=== PATIENT | male | born 1975 | race Caucasian/White ===

== ENCOUNTER 2017-04-17 00:41 | Inpatient (IN) | payer BC, SELFPAY | END 2017-04-18 14:30 | disposition home or self-care (01) | DRG 641 | PROVIDERS: Admitting Provider Internal Medicine Adolescent Medicine; Emergency Provider Emergency Medicine; Family Provider Nurse Practitioner; Visit Provider Family Medicine | DX: E86.0 Dehydration (principal); K52.9 Noninfective gastroenteritis and colitis, unspecified; K75.9 Inflammatory liver disease, unspecified; D72.825 Bandemia | CPT/HCPCS: 36415; 71020; 80048; 80053; 80076; 82150; 82550; 82553; 83605; 83690; 84484; 85025; 86704; 86708; 86803; 87040; 87275; 87276; 87340; 87486; 87581; 87633; 87798; 93005; 96365; 96375; 99285; J2405 ==

== ENCOUNTER → 2017-04-21 | Outpatient (CLI) | payer BC, SELFPAY | PROVIDERS: Family Provider Family Medicine; Visit Provider Family Medicine | DX: R05 Cough (principal) | CPT/HCPCS: 71020 ==

== ENCOUNTER → 2017-04-22 | Outpatient (CLI) | payer BC, SELFPAY | PROVIDERS: Visit Provider Family Medicine | DX: A09 Infectious gastroenteritis and colitis, unspecified (principal) | CPT/HCPCS: 87507 ==

== ENCOUNTER 2017-08-02 10:30 | Outpatient (RCR) | payer BC, SELFPAY | END 2017-08-02 10:31 | disposition home or self-care (01) | LOC: PT 10:30 | PROVIDERS: Family Provider Family Medicine; PCP Nurse Practitioner | DX: M48.062 Spinal stenosis, lumbar region with neurogenic claudication (principal) | CPT/HCPCS: 97110 ==

== ENCOUNTER → 2017-12-26 13:00 | Outpatient (CLI) | payer BC, SELFPAY ==
--- NOTE | 2017-12-26 13:07 | NVE_ITS ---
Venous Exam Indications: 782.3 Edema. IMPRESSIONS 1. There is no evidence of significant Reflux. 2. No evidence of deep or superficial vein thrombosis involving the right lower extremity Right lower extremity venous duplex evaluation. Doppler flow study including spectral analysis, color and cunningham scale imaging. Location: Vascular laboratory. Patient status: Outpatient. Tables: Venous flow and imaging: + +-------+ + Location Overall Flow properties + +-------+ + Right common femoral Patent Normal phasicity; spontaneous; normal augmentation; compressible + +-------+ + Right saphenofemoral junction Patent Compressible + +-------+ + Right profunda femoral Patent Compressible + +-------+ + Right femoral Patent Normal phasicity; spontaneous; normal augmentation; compressible + +-------+ + Right greater saphenous Patent Normal phasicity; spontaneous; normal augmentation; compressible + +-------+ + Right popliteal Patent Normal phasicity; spontaneous; normal augmentation; compressible + +-------+ + Right posterior tibial Patent Compressible + +-------+ + Right peroneal Patent Compressible + +-------+ + Right gastrocnemius Patent Compressible + +-------+ + Right soleal Patent Compressible + +-------+ + (Report amended ) Electronically signed by: Jeff Paez [id number]
--- NOTE | 2017-12-26 13:08 | US_ITS ---
US Arterial Ankle Brachial Ind History: Previous smoker, right lower extremity edema ORDERING PHYSICIAN: Maryann Mccallum PATIENT AGE: 42 years TECHNIQUE: Segmental pressures obtained of both right and left leg. These are compared to brachial blood pressure to yield index at each level sampled including summary KENNY. The data sheets from the procedure are available in PACS FINDINGS Rest study only performed today No prior studies available for comparison. Blood pressures reported are in millimeters mercury. RIGHT LEG KENNY = 1.1. RIGHT LEG TBI=1.0 Brachial BP: 145 Thigh BP: 145 Calf BP: 155 Ankle PT: 161 Ankle DP : 152 Digit =139 LEFT LEG KENNY = 1.1 LEFT LEG TBI= 1.0 Brachial BPD: 136 Thigh BP: 147 Calf BP: 156 Ankle PT:156 Ankle DP: 157 Digit = 143 Pulses and waveforms: Normal IMPRESSION: The ABIs as reported above are within normal limits. Waveforms and pulses are also unremarkable.
== END ==
PROVIDERS: Family Provider Family Medicine; PCP Nurse Practitioner; Visit Provider Nurse Practitioner
DX: M79.89 Other specified soft tissue disorders (principal)
CPT/HCPCS: 93922; 93971

== ENCOUNTER → 2019-06-05 20:17 | Outpatient (CLI) | payer BC, SELFPAY | PROVIDERS: PCP Nurse Practitioner; Visit Provider Nurse Practitioner Family | DX: G47.33 Obstructive sleep apnea (adult) (pediatric) (principal); R40.0 Somnolence; R06.83 Snoring; E66.9 Obesity, unspecified; G25.81 Restless legs syndrome | CPT/HCPCS: 95810 ==

== ENCOUNTER → 2019-12-19 09:05 | Outpatient (CLI) | payer BC, SELFPAY ==
--- NOTE | 2019-12-19 09:07 | US_ITS ---
PROCEDURE: US THYROID CLINICAL INDICATION: ENLARGED THYROID,FATIGUE COMPARISON: No exams were available for comparison FINDINGS: Right lobe: 3.7 x 1.3 x 2.2 cm. There is a subtle 12 x 6 mm area of slight decreased echogenicity in the upper pole which could be due to a small isoechoic nodule versus an area of heterogeneous echogenicity. Left lobe: 3.7 x 0.9 x 1.6 cm. Unremarkable appearance Isthmus: Unremarkable Additional findings: IMPRESSION: Questionable right thyroid nodule versus an area of heterogeneous echogenicity. Consider six-month follow-up Dictated by: Jeff Paez MD 12/19/2019 14:07 Jeff Paez MD in [place] 12/19/2019 14:07
== END ==
PROVIDERS: PCP Nurse Practitioner; Visit Provider Nurse Practitioner
DX: E04.9 Nontoxic goiter, unspecified (principal); R53.83 Other fatigue
CPT/HCPCS: 76536

== ENCOUNTER → 2020-08-21 17:12 | Outpatient (CLI) | payer BC, SELFPAY ==
--- NOTE | 2020-08-21 17:19 | XR_ITS ---
PROCEDURE INFORMATION: Exam: XR Right Ribs with PA Chest Exam date and time: 08/21/2020 5:19 PM Age: 44 years old Clinical indication: Other: RT ant rib pain; Additional info: RT rib pain, no injury TECHNIQUE: Imaging protocol: XR Right ribs with PA chest. Views: 3 views COMPARISON: CR CXR CHEST(2 VIEWS-NOT PORTABLE) 04/21/2017 12:46 PM FINDINGS: Lungs: Unremarkable. No consolidation. Pleural spaces: Unremarkable. No pleural effusion. No pneumothorax. Heart/Mediastinum: Unremarkable. No cardiomegaly. Bones/joints: Unremarkable. IMPRESSION: No acute findings.
== END ==
PROVIDERS: PCP Nurse Practitioner Family; Visit Provider Nurse Practitioner Family
DX: R07.81 Pleurodynia (principal); S29.9XXA Unspecified injury of thorax, initial encounter
CPT/HCPCS: 71101

== ENCOUNTER 2022-02-20 13:03 | Emergency (ER) | payer BC, SELFPAY ==
[2022-02-20 13:55] VITALS: BP 142/103; PULSE 68; RESP 14; TEMP 36.4; O2SAT 97; BMI 44.7
--- NOTE | 2022-02-20 14:16 | EXP.UTC ---
Discharge Plan Disposition Patient Disposition: Home, Self-Care Condition: Good Prescriptions Prescriptions: New cefdinir 300 mg capsule 300 mg PO BID Qty: 20 0RF No Action Ubrelvy 100 mg tablet 100 mg PO PRN Label Comments: FOR MIGRAINE; TAKE 1 TABLET BY MOUTH AT ONSET OF SYMPTOMS. MAY REPEAT AFTER TWO HOURS IF SYMPTOMS PERSIST. MAX 2 TABLETS IN 24 HOURS. MAX 4 TABLETS PER WEEK. famotidine 20 mg tablet 20 mg PO DAILY ibuprofen 800 mg tablet 800 mg PO BID Ozempic 1 mg/dose (4 mg/3 mL) pen injector 1 mg SQ Referrals Follow up/Referrals: Lindsay Ashton APRN [Primary Care Provider] - See instructions Activity Restrictions/Add. Instructions Additional Instructions/Restrictions: Start antibiotic as soon as possible and be sure to take as ordered for full length of time even though he should start feeling better in 24-48 hours. Tylenol or Motrin as needed for pain or fever Encourage fluids, water, Gatorade, Powerade, Pedialyte if /toddler/child Warm compresses often helps when placed over ear Return immediately for new or worsening symptoms no noticeable improvement in 48-72 hours and in 10-14 days to ensure the ears are return to baseline. Follow-up with primary care Clinical Impressions Clinical Impression: Acute otitis media of right ear with perforated tympanic membrane Instructions Patient Instructions: Middle Ear Infection Discharge ED Provider: Jagruti ([facility])Therese [facility] [place] HPI General Stated complaint: ear pain, cough, chest congestion Mode of Arrival: Ambulatory Source of Information: Patient Limitations: No Limitations Time Seen by Provider: 02/20/22 14:16 Description of Symptoms (Recalled from Triage Doc. by RN): PATIENT C/O PAIN AND DRAINAGE FROM RIGHT EAR HEENT Symptoms (Recalled from RN notes): Yes Resp Symptoms (Recalled from RN notes): No Skin Symptoms (Recalled from RN notes): No MS Symptoms (Recalled from RN notes): No Functional Status (Recalled from RN notes): WNL History of Present Illness Provider Complaint: 46 yr old male presents for rt ear pain and drainage. Pt states he has clear nasal congestion for over 1 week and it makes it hard to wear c pap machine Related Data Home Medications Medication Instructions Recorded Confirmed famotidine 20 mg tablet 20 mg PO DAILY 08/25/21 08/25/21 ibuprofen 800 mg tablet 800 mg PO BID 08/25/21 08/25/21 semaglutide 1 mg/dose (4 mg/3 mL) 1 mg SQ 08/25/21 08/25/21 subcutaneous pen injector (Ozempic) ubrogepant 100 mg tablet (Ubrelvy) 100 mg PO PRN 08/25/21 08/25/21 Previous Rx's Medication Instructions Recorded cefdinir 300 mg capsule 300 mg PO BID #20 caps 02/20/22 Allergies Allergy/AdvReac Type Severity Reaction Status Date / Time ampicillin [From Omnipen] Allergy Verified 08/25/21 10:15 Worker's Comp Is this a Worker's Comp case?: No PFSH PFSH Social History , 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) Smoking Status: Former smoker alcohol intake: current substance use type: denies use current occupational status: other Travel in the last 8 weeks: None household members: family housing: house ROS Obtained: Yes All systems reviewed & no additional complaints except as documented Constitutional Constitutional: Reports system reviewed and no additional complaints, except as documented Eyes Eyes: Reports system reviewed and no additional complaints, except as documented ENT Ears, Nose, Mouth, and Throat: Reports system reviewed and no additional complaints, except as documented, Reports ear discharge and Reports otalgia Cardiovascular Cardiovascular: Reports system reviewed and no additional complaints, except as documented Respiratory Respiratory: Reports system reviewed and no additional complaints, except as documented and Reports as per HPI Gastrointestinal Gastrointestingal: Reports system reviewed and no additional complaints, except as documented a
[2022-02-20 14:31] VITALS: BP 142/103; PULSE 68; RESP 14; TEMP 36.4; O2SAT 97
== END 2022-02-20 14:41 | disposition home or self-care (01) ==
PROVIDERS: Emergency Provider Nurse Practitioner Family; PCP Nurse Practitioner Family
DX: H66.91 Otitis media, unspecified, right ear (principal); H72.91 Unspecified perforation of tympanic membrane, right ear
CPT/HCPCS: 99212; G0463

== ENCOUNTER 2022-03-21 19:04 | Emergency (ER) | payer BC, SELFPAY ==
--- NOTE | 2022-03-21 20:03 | EXP.UTC ---
Discharge Plan Disposition Patient Disposition: Home, Self-Care Condition: Good Prescriptions Prescriptions: New benzonatate [benzonatate] 100 mg capsule 100 mg PO TIDP PRN (Reason: Cough) Qty: 30 0RF oseltamivir [Tamiflu] 75 mg capsule 75 mg PO BID Qty: 10 0RF ondansetron 4 mg Tablet,Disintegrating 4 mg PO Q8H PRN (Reason: Nausea) Qty: 20 0RF No Action Ubrelvy 100 mg tablet 100 mg PO PRN Label Comments: FOR MIGRAINE; TAKE 1 TABLET BY MOUTH AT ONSET OF SYMPTOMS. MAY REPEAT AFTER TWO HOURS IF SYMPTOMS PERSIST. MAX 2 TABLETS IN 24 HOURS. MAX 4 TABLETS PER WEEK. famotidine 20 mg tablet 20 mg PO DAILY ibuprofen 800 mg tablet 800 mg PO BID Ozempic 1 mg/dose (4 mg/3 mL) pen injector 1 mg SQ cefdinir 300 mg capsule 300 mg PO BID Qty: 20 0RF Referrals Follow up/Referrals: Lindsay Ashton APRN [Primary Care Provider] - See instructions Activity Restrictions/Add. Instructions Additional Instructions/Restrictions: Drink plenty of fluids. Take tylenol or ibuprofen for pain or fever. Take the medications as directed. Follow up with your regular doctor. GO TO THE ER FOR ANY WORSENING SYMPTOMS Clinical Impressions Clinical Impression: Influenza Stand Alone Forms Stand Alone Forms: Work/School Release Instructions Patient Instructions: Influenza, Oseltamivir Discharge ED Provider: Manuelito Arreguin [facility] General Stated complaint: fever, weakness, cough Time Seen by Provider: 03/21/22 20:03 History of Present Illness Provider Complaint: He states that for the past 1 day he has had fever, chills, dry cough, malaise and poor appetite. Related Data Home Medications Medication Instructions Recorded Confirmed famotidine 20 mg tablet 20 mg PO DAILY 08/25/21 08/25/21 ibuprofen 800 mg tablet 800 mg PO BID 08/25/21 08/25/21 semaglutide 1 mg/dose (4 mg/3 mL) 1 mg SQ 08/25/21 08/25/21 subcutaneous pen injector (Ozempic) ubrogepant 100 mg tablet (Ubrelvy) 100 mg PO PRN 08/25/21 08/25/21 Previous Rx's Medication Instructions Recorded cefdinir 300 mg capsule 300 mg PO BID #20 caps 02/20/22 benzonatate 100 mg capsule 100 mg PO TIDP PRN Cough #30 caps 03/21/22 ondansetron 4 mg disintegrating 4 mg PO Q8H PRN Nausea #20 tabs 03/21/22 tablet oseltamivir 75 mg capsule (Tamiflu) 75 mg PO BID #10 caps 03/21/22 Allergies Allergy/AdvReac Type Severity Reaction Status Date / Time ampicillin [From Omnipen] Allergy Verified 03/21/22 20:20 PFSH PFS Social History Smoking Status: Former smoker alcohol intake: current substance use type: denies use current occupational status: other Travel in the last 8 weeks: None household members: family housing: house ROS Obtained: Yes All systems reviewed & no additional complaints except as documented Constitutional Constitutional: Reports chills and Reports fever(s) Eyes Eyes: Denies eye discharge ENT Ears, Nose, Mouth, and Throat: Reports as per HPI Cardiovascular Cardiovascular: Denies chest pain Respiratory Respiratory: Denies chest congestion and Reports cough Gastrointestinal Gastrointestingal: Reports nausea; Denies abdominal pain, constipation, cramping, diarrhea or vomiting Musculoskeletal Musculoskeletal: Denies arthralgias Integumentary/Breasts Skin/Breast: Denies rash Neurologic Neurologic: Denies paresthesias Physical Exam General General appearance: alert and in no apparent distress Head Head exam: atraumatic, normocephalic and normal inspection Eye Eye exam: Present normal appearance, PERRL and EOMI ENT ENT exam: Present normal exam, normal oropharynx, mucous membranes moist, TM's normal bilaterally and normal external ear exam Neck Neck exam: Present normal inspection, full ROM and trachea midline; Absent meningismus or lymphadenopathy Chest Chest inspection: Present normal inspection and symmetric chest wall
[2022-03-21 20:18] VITALS: BP 125/85; PULSE 68; RESP 18; TEMP 36.7; O2SAT 97; BMI 42.5
[2022-03-21 20:22] LABS: UTC Influenza A Antigen Negative (Negative); UTC Influenza B Antigen Negative (Negative)
[2022-03-21 20:28] VITALS: BP 125/85; PULSE 68; RESP 18; TEMP 36.7
[2022-03-21 20:34] LABS: Adenovirus,PCR Not Detected (NotDetected); Bordetella Pertussis Not Detected (NotDetected); Chlamydophila Pneumoniae, PCR Not Detected (NotDetected); Coronavirus 229E Not Detected (NotDetected); Coronavirus NL63 Not Detected (NotDetected); Coronavirus OC43 Not Detected (NotDetected); Coronovirus HKU1,PCR Not Detected (NotDetected); Human Metapneumovirus Not Detected (NotDetected); Influenza A, PCR Not Detected (NotDetected); Influenza AH1, 2009 Not Detected (NotDetected); Influenza AH1, PCR Not Detected (NotDetected); Influenza AH3,PCR Not Detected (NotDetected); Influenza B, PCR Not Detected (NotDetected); Mycoplasma Pneumoniae, PCR Not Detected (NotDetected); Parainfluenza 1, PCR Not Detected (NotDetected); Parainfluenza 2, PCR Not Detected (NotDetected); Parainfluenza 3, PCR Not Detected (NotDetected); Parainfluenza 4, PCR Not Detected (NotDetected); Respiratory Syncytial Virus Not Detected (NotDetected); Rhinovirus/Enterovirus Not Detected (NotDetected)
[2022-03-23 11:57] LABS: Coronavirus 19, PCR Detected (NotDetected)
== END 2022-03-21 20:31 | disposition home or self-care (01) ==
PROVIDERS: Emergency Provider Nurse Practitioner Family; PCP Nurse Practitioner Family
DX: U07.1 COVID-19 (principal)
CPT/HCPCS: 87581; 87632; 87798; 87804; 99212; C9803; G0463; U0003; U0005

== ENCOUNTER 2023-09-12 12:40 | Outpatient (CLI) | payer BC, SELFPAY ==
[2023-09-12 12:46] LABS: Adenovirus F 40/41, stool Not Detected (NotDetected); Campylobacter Not Detected (NotDetected); Clostridium Difficile A/B, PCR Not Detected (NotDetected); Cryptosporidium Not Detected (NotDetected); Cyclospora Cayetanesis Not Detected (NotDetected); Entamoeba histolytica Not Detected (NotDetected); Enteroaggregative E coli Not Detected (NotDetected); Enteropathogenic E coli Not Detected (NotDetected); Enterotoxigenic E coli Not Detected (NotDetected); Giardia lamblia Not Detected (NotDetected); Norovirus Not Detected (NotDetected); Plesimonas Shigalloides, PCR Not Detected (NotDetected); Rotavirus A Not Detected (NotDetected); Salmonella, PCR Not Detected (NotDetected); Sapovirus Not Detected (NotDetected); Shiga-like toxin E coli Not Detected (NotDetected); Shigella Enterovasive E coli Not Detected (NotDetected); Vibrio Cholerae Not Detected (NotDetected); Vibrio, PCR Not Detected (NotDetected); Yersinia Entercolitica, PCR Not Detected (NotDetected)
[2023-09-12 15:01] LABS: Astrovirus Detected (NotDetected)
== END 2023-09-12 23:59 | disposition home or self-care (01) ==
LOC: LAB.DROPOF 12:41
PROVIDERS: PCP Nurse Practitioner; Visit Provider Nurse Practitioner
DX: R19.7 Diarrhea, unspecified (principal); A08.32 Astrovirus enteritis
CPT/HCPCS: 87507

== ENCOUNTER 2023-09-15 10:12 | Outpatient (CLI) | payer BC, SELFPAY | END 2023-09-15 23:59 | disposition home or self-care (01) | LOC: RT 10:13 | PROVIDERS: PCP Nurse Practitioner; Visit Provider Nurse Practitioner | DX: R00.2 Palpitations (principal) | CPT/HCPCS: 93270; 93272 ==

== ENCOUNTER 2023-11-29 10:14 | Outpatient (CLI) | payer BC, SELFPAY ==
--- NOTE | 2023-11-29 | CA_ITS ---
APPROVED REPORT Exam: Exercise Treadmill Technologist: Andria Vargas, Ht: 5 ft 11 in Wt: 271 lbs BSA: 2.40 m2 HR: 63 bpm BP: 120/86 mmHg Rhythm: NSR, PACs, cannot R/O old inferior ID Medical History Medications: Famotidine,,,,, Ibuprofen,,,,, Ozempic,,,,, RImegapant,,,,, Cardiac Risk Factors: FHX of CAD, Smoking Stress Test Details Test: Matias HR Resting HR: 72 bpm Max Heart Rate (APMHR): 174 bpm Max HR Achieved: 163 bpm Target HR (85% APMHR): 148 bpm % of APMHR: 94 Recovery HR: 112 bpm HR response to stress: Normal HR response to stress BP Resting BP: 117.0/86 mmHg Max BP: 180/88 mmHg Recovery BP: 127.0/82.0 mmHg BP response to stress: Normal blood pressure response to stress. ECG Resting ECG: NSR, PACs, cannot R/O old inferior ID Stress EC.[address] depression Arrhythmia: None Recovery ECG: Return to baseline within 3 minutes of recovery Recovery Arrhythmia: None Clinical Exercise duration: 10:00 min Highest Stage Achieved: Exercise capacity: 12.8 METs Stress ECG Conclusion During Matais protocol pt walked total of 10 minutes. No CP noted. ST changes: 0.[address] depression. Ectopy: None Conclusion: No ECG ischemic changes at peak stress. Myoview images reported separately. Test Summary REST . . . . . . . Sitting REST . . . . . . . Standing REST 08:43 0.0 0.0 72 . 117/ 86 . . Stage 1 01:00 10.0 1.7 90 . . . . Stage 1 02:00 10.0 1.7 93 . . . . Stage 1 03:00 10.0 1.7 94 . 154/ 88 . . Stage 2 01:00 12.0 2.5 106 . . . . Stage 2 02:00 12.0 2.5 111 . . . . Stage 2 03:00 12.0 2.5 119 . 180/ 88 . . Stage 3 01:00 14.0 3.4 131 . . . . Stage 3 02:00 14.0 3.4 140 . . . . Stage 3 03:00 14.0 3.4 143 . . . . Stage 4 01:00 16.0 4.2 160 . . . Stop exercise at 10:00 RECOVERY 01:00 0.0 0.0 130 . . . . RECOVERY 02:00 0.0 0.0 105 . . . . RECOVERY 03:00 0.0 0.0 101 . 127/ 82 . . RECOVERY 04:00 0.0 0.0 97 . 148/ 67 . . RECOVERY 05:00 0.0 0.0 97 . 148/ 67 . . RECOVERY 05:22 0.0 0.0 100 . 137/ 73 . . Electronically signed by : Jennifer Orozco MD 11/30/2023 11:32:43
--- NOTE | 2023-11-29 10:14 | CA_ITS ---
APPROVED REPORT EXAM: Comprehensive 2D, Doppler, and color-flow Echocardiogram Director Of Food And Nutrition Services: Kyleigh Cardoso CRT Ht: 5 ft 11 in Wt: 271lbs BSA: 2.40 BP: 140/81 mmHg Indications: Shortness of Breath, Palpitations 2D Dimensions Left Atrium 3.71 cm LVEF (Fontanez's) 54.70 % LVOT 1.94 cm (M/F) 1.5-2.5 LV Volume 145.10 mL LA Volume 51.30 mL LA Volume Index 21.40 mL/m2 (M/F) 16-34 EF AP4 56.90 % EF AP2 49.3 % EF BP 54.7 % GL Strain -17.9 % M-Mode Dimensions RVDd 3.14 cm (0.9-2.6) LVDd 5.17 cm (3.5-5.7) Ao Diam 4.37 cm (2.0-3.7) LVDs 3.78 cm (3.5-5.7) IVSd 2.03 cm (0.6-1.1) PWd 0.76 cm (0.6-1.1) EF (Teich) 52.10% FS 26.90% EDV (Teich) 127.80 mL TAPSE 1.53 (<1.7) ESV (Teich) 61.20 mL LV Diastology E Decel Time 258 (160-240 msec) E/A Ratio 0.93 MED E' 5.9 (>= 7 cm/sec) MED A' 8.90 cm/s E'/MED E' Ratio 10.90 (<= 14) LAT E' 8.8 (>= 10 cm/sec) LAT A' 12.40 cm/s E/LAT E' Ratio 7.31 (<= 14) Aortic Valve AoV Peak Leonardo. 116.0 (50-130 cm/s) AO Peak GR. 5.40 mmHg Mitral Valve MV E Max Leonardo. 64.0 (40-130 cm/s) MV A Velocity 69.0 (40-130 cm/s) E/A Ratio 0.93 MV Decel. Time 258 (160-240 ms) Tricuspid Valve TR P. Velocity 185.00 cm/s RAP Estimate 10.00 mmHg RVSP 23.60 mmHg Left Ventricle The left ventricle is normal size. The left ventricular systolic function is normal. The left ventricular ejection fraction is within the normal range. Proximal septal thickening is noted. There is normal LV segmental wall motion. The left ventricular diastolic function is normal. LVEF is 55%. Right Ventricle The right ventricle is normal size. The right ventricular systolic function is normal. Atria The left atrium size is normal. The right atrium size is normal. There is no Doppler evidence of interatrial shunt. Aortic Valve The aortic valve is mildly thickened. There is no aortic valvular stenosis. No aortic regurgitation is present. Mitral Valve The mitral valve is normal in structure. No evidence of mitral valve stenosis. Trace mitral regurgitation. Tricuspid Valve The tricuspid valve leaflets are thin and pliable. Trace tricuspid regurgitation. There is insufficient TR jet to estimate RVSP. Pulmonic Valve The pulmonary valve is normal in structure. Trace pulmonic regurgitation. Great Vessels The aortic root is normal in size. The ascending aorta is normal in size. IVC is normal in size and collapses >50% with inspiration. Pericardium There is no pericardial effusion. Other Information Study Quality: Fair Conclusion Normal biventricular systolic function. No significant valvular stenosis or regurgitation. Electronically signed by : Jennifer Orozco MD 12/03/2023 17:58:23
--- NOTE | 2023-11-29 10:58 | NM_ITS ---
APPROVED REPORT Exam: Nuclear Stress Test Indication: DYSRHYTHMIA, OBESITY, FORMER SMOKER, FM HX, PVC, SOB Patient Location: Outpatient Stress Tech: Andria SIDDIQI Tech:Pearl Mcneill ANNABELLESamantha RT (R)(N)(M) Ht: 5 ft 11 in Wt: 267 lbs HR: 63 bpm BP: 120/86 mmHg BSA: 2.38 m2 Rhythm: NSR TID: 0.70 BMI: 37.2 History: DYSRHYTHMIA, FORMER SMOKER, FM HX, PVC, SOB Procedure: Patient exercised on Matias protocol 10:00 minutes and sec, resting heart rate 63 bpm, resting blood pressure 120/86 mmHg, with exercise maximum heart rate achived was 160 bpm which is 94 % of the maximum predicted heart rate and blood pressure was 180/88 mmHg. Test was stopped due to FAITGUE. Patient has average exercise capacity, achieved 12.8 METs of workload on treadmill, the blood pressure response to exercise was normal. Cardiac Stress and Resting SPECT Images: Cardiac Stress and Resting SPECT images were obtained using technetium 99m Myoview 32.4 mCi stress and 10.42 mCi at rest. Resting and stress imaging in supine and prone positions demonstrate a medium-sized, moderate, predominantly fixed perfusion defect in the inferior and inferoapical LV grier. There is a small region of surrounding reversibility in the inferoapical region. Gated imaging demonstrates normal global and regional LV systolic function. LVEF is calculated at 62%. Conclusion: Medium-sized, moderate, predominantly fixed perfusion defect in the inferior and inferoapical LV grier. There is a small region of surrounding reversibility in the inferoapical region. Findings are suggestive of partial reversible ischemia. Gated imaging demonstrates normal global and regional LV systolic function. LVEF is calculated at 62%. Electronically signed by : Jennifer Orozco MD 11/30/2023 11:36:41
[2023-11-29] MEDS: ISOTOPE MYOVIEW (PER STUDY) 1 DOSE IV (13:28)
[2023-11-29] MEDS: SODIUM CHLORIDE 0.9% 10ML SYR (RAD ONLY) 10 ML IV ×2 (13:28)
== END 2023-11-29 23:59 | disposition home or self-care (01) ==
LOC: RT 10:14
PROVIDERS: PCP Nurse Practitioner; Visit Provider Physician Assistant
DX: I49.3 Ventricular premature depolarization (principal); R06.00 Dyspnea, unspecified; Z82.49 Family history of ischemic heart disease and other diseases of the circulatory system
CPT/HCPCS: 78452; 93017; 93018; 93306; A9502

== ENCOUNTER 2024-01-01 08:15 | Day surgery (SDC) | payer BC, SELFPAY ==
[2024-01-01] VITALS (10 sets, daily range): BP systolic 124–156; BP diastolic 90–101; PULSE 50–64; RESP 18–20; TEMP 36.1; O2SAT 97–100; BMI 38.2
--- NOTE | 2024-01-01 07:19 | IR_ITS ---
APPROVED REPORT Patient Location: Outpatient Dictaphone Operator: CIERA Mejia RT (R) PROCEDURES Left heart catheterization Left ventriculogram Selective coronary angiogram INDICATION Abnormal Myoview, Angina pectoris Informed consent was obtained prior to the procedure. COMPLICATIONS NONE Estimated Blood Loss: LESS THAN 10 ML TECHNIQUE One percent lidocaine used to anesthetize the right anterior aspect of the wrist. The right radial artery was accessed via the Seldinger technique. A 6 Greek sheath was placed in the right radial artery. 2.5 mg of Verapamil, 800 mcg of nitroglycerin, 1mg Lidocaine and 5000 U Heparin were given through the arterial sheath. The papa catheter was also used to perform left heart catheterization, left ventriculogram and selective coronary angiogram. At the end of the procedure the sheath was removed good hemostasis was achieved using Traclet band, patient was transferred to the postop holding area in stable condition. ANGIOGRAPHIC RESULTS The left main artery Normal The left anterior descending artery Has a proximal concentric 30% stenosis with CHINMAY II flow down the entire vessel The circumflex artery Dominant normal The right coronary artery Nondominant normal The ROBERSON ventriculogram reveals Not performed The left ventricular end-diastolic pressure Not measured IMPRESSION Mild to moderate proximal LAD stenosis accompanied by CHINMAY II flow down the LAD most consistent with endothelial dysfunction PLAN 1. I favor risk factor modification and maximizing antianginal medications. 2. Angiographically it appears patient has endothelial dysfunction which is likely etiology for the angina 3. LDL less than 55 to be achieved with high intensity statin 4. Treatment of underlying endothelial dysfunction Electronically signed by : Maurice Cisneros MD 01/01/2024 11:04:33
--- OUTSIDE RECORDS SUMMARY | 2024-01-01 08:18 | XMS_ITS ---
Author Organization [facility] Address [address] [place] [address] Phone Care Team Providers Care Wood Room Supervisor Name Role Phone Ino VALDEZ, Ian Unavailable [phone] Cinthia Mccallum APRN Unavailable [phone] Problems Includes: Active, inactive, and resolved Problems All Visits Onset Date Resolved Date Provider Condition S tatus Joint Pain, Localized in the Left Shoulder 07/22/2022 Delores Jennings PA-C Active Last Documented On 3 9:52AM ; [facility] Right Forearm Pain 08/24/2018 Ian Delong ctive Last Documented On 9 2:15PM ; [facility] Plan of Treatment Instructions to patient Lose weight Last Documented On 3 2:13PM ; [facility] Lose weight Last Documented On 3 9:59AM ; [facility] Instructions for patient see PCP for BP and weight managment Last Documented On 9 2:37PM ; [facility] Instructions for patient see PCP for BP and weight managment Last Documented On 9 1:51PM ; [facility] Instructions for patient see PCP for BP and weight managment Last Documented On 9 2:22PM ; [facility] Instructions for patient see PCP for BP and weight managment Last Documented On 9 9:32AM ; [facility] Instructions for patient see PCP for BP and weight managment Last Documented On 9 9:42AM ; [facility] Instructions for patient see PCP for BP and weight managment Last Documented On 9 2:17PM ; [facility] Assessments Includes: Assessments for all patient encounters No Assessments Recorded Instructions Includes: Instructions for all patient encounters Instructions to patient Lose weight Last Documented On 3 2:13PM ; [facility] Lose weight Last Documented On 3 9:59AM ; [facility] Instructions for patient see PCP for BP and weight managment Last Documented On 9 2:37PM ; [facility] Instructions for patient see PCP for BP and weight managment Last Documented On 9 1:51PM ; [facility] Instructions for patient see PCP for BP and weight managment Last Documented On 9 2:22PM ; [facility] Instructions for patient see PCP for BP and weight managment Last Documented On 9 9:32AM ; [facility] Instructions for patient see PCP for BP and weight managment Last Documented On 9 9:42AM ; [facility] Instructions for patient see PCP for BP and weight managment Last Documented On 9 2:17PM ; [facility] Medical Equipment - Implanted Devices Includes: Current and historical Devices No Medical Equipment Recorded Medications Includes: Current and historical Medications Current Medications (continue as prescribed) Ozempic (2 MG/DOSE) 8 MG/3ML Subcutaneous Solution Pen-injector 07/21/2022 Provider: NICOLE DOLL Diagnosis: Last Documented On 3 9:52AM By Simon Hernandez ; [facility] Fluconazole 150 MG Oral Tablet 07/02/2022 Provider: Jose Antonio Edmondson Diagnosis: Last Documented On 3 9:52AM By Simon Hernandez ; [facility] Past Medications on file Duexis 800-26.6MG Oral Tablet 08/24/2018 - 07/22/2022 Provider: Diagnosis: Last Documented On 3 9:52AM By Simon Hernandez ; [facility] Medications Administered Includes: Administered Medications in patient's chart No Administered Medications Recorded Results Includes: Results from 12/31/2022 through 01/01/2024 No Results Recorded For Specified Dates History of Present Illness History of Present Illness not supported for this document type No History of Present Illness Recorded Social History Description Last Updated Tobacco non-user 09/30/2022 Last Documented On 3 2:42PM ; [facility] No recent change in diet 09/30/2022 Last Documented On 3 2:42PM ; [facility] Not a current smoker. 09/30/2022 Last Documented On 3 2:42PM ; [facility] Alcohol use 07/22/2022 Last Documented On 3 8:09AM ; [facility] Caffeine use 07/22/2022 Last Documented On 3 8:09AM ; [facility] Not exercising regularly 07/22/2022 Last Documented On 3 8:09AM ; [facility] Not using drugs 07/22/2022 Last Documented On 3 8:09AM ; [facility] No recent change in diet 12/20/2018 Last Documented On 1 2:17PM ; [facility] No tobacco use 12/20/2018 Last Documented On 1 2:17PM ; [facility] Not a current smoker 12/20/2018 Last Documented On 1 2:17PM ; [facility] Smoking status : Never smoker 12/20/2018 Last Documented On 1 2:17PM ; [facility] Procedures and Surgical History Surgical History Last Updated History of back surgery 07/22/2022 Last Documented On 3 8:09AM ; [facility] Past Surgical History: gastric bypass Last Documented On 3 8:09AM ; [facility] Medical History Includes: Medical History in patient's chart Description Last Updated History of arthritis 07/22/2022 Last Documented On 3 8:09AM ; [facility] History of History of Gallbladder 2022 Last Documented On 3 8:09AM ; [facility] History of Sleep Apnea 07/22/2022 Last Documented On 3 8:09AM ; [facility] Use of CPAP 07/22/2022 Last Documented On 3 8:09AM ; [facility] 4 way mamenectomy ~l2-l5 ~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 ~hypoglycemia 03/27/2019 Last Documented On 1 10:50AM ; [facility] Family History Includes: Family History in patient's chart Description Last Updated Diabetes mellitus 07/22/2022 Last Documented On 3 8:09AM ; [facility] Family history of cancer 07/22/2022 Last Documented On 3 8:09AM ; [facility] Family history of heart disease 07/23/19 Last Documented On 3 8:09AM ; [facility] stroke/seizure 12/20/2018 Last Documented On 1 2:17PM ; [facility] Family history of diabetes mellitus 11/23 Last Documented On 1 2:17PM ; [facility] Family history of hypertension Last Documented On 1 2:17PM ; [facility] Review of Systems Review of Systems not supported for this document type No Review of Systems Recorded Mental Status Description No anxiety Functional Status No Functional Status Recorded Physical Exam Physical Exam not supported for this document type No Physical Exam Recorded Immunizations Includes: Immunizations in patient's chart Vaccine Dose # Date Site Reaction(s) Status Source Influenza 1 09/30/2022 Complete (Refused - Patient objection) [facility] Last Documented On 3 2:13PM ; [facility] PCV (Pneumovax 23) 1 09/30/2022 Complete (Refused - Patient objection) [facility] Last Documented On 3 2:13PM ; [facility] Td 1 09/30/2022 Complete (Refused - Patient objection) [facility] Last Documented On 3 2:13PM ; [facility] Allergies Includes: Active, inactive, and resolved Allergies Substance Type Reaction Onset Date Resolved Date Statu s OTHER Allergy 08/24/2018 Active Last Documented On 3 2:13PM ; [facility] Note: omnipen Insurance Includes: Active Insurance Policies Plan Name Member ID Group # Subscriber Relationship Effect mindy Dates 1 - Derek Turner [id number] Guilherme Stump Self 07/11/2022 - Unknown 2 - [facility] [id number] Guilherme Stump Self 2018 - Unknown Clinical Notes Includes: Signed Clinical Notes starting from 04/07/2022 No Clinical Notes Recorded
--- OUTSIDE RECORDS SUMMARY | 2024-01-01 08:18 | XMS_ITS ---
Care Plan - [facility], [facility] Created on: January 01, 2024 Guilherme Esposito : 1975 Sex: Male Author Organization [facility] Address [address] [place] [address] Phone Care Team Providers Care Administrator Health Care Facility Name Role Phone Ian Mckinnon MD Unavailable [phone] Cinthia Mccallum APRN Unavailable [phone]
--- OUTSIDE RECORDS SUMMARY | 2024-01-01 08:19 | XMS_ITS | Clinical Summary ---
Author Organization [facility] Address [address] [place] [address] Phone Care Team Providers Care Heating And Ventilating Tender Name Role Phone Ino VALDEZ, Ian Unavailable [phone] Cinthia Mccallum APRN Unavailable [phone] Reason for Visit and Chief Complaint The Chief Complaint is: R forearm pain Problems Includes: Problems addressed during this encounter and other active Problems All Visits Onset Date Resolved Date Provider Condition S tatus Joint Pain, Localized in the Left Shoulder 07/22/2022 Delores Jennings PA-C Active Last Documented On 3 9:52AM ; [facility] Right Forearm Pain 08/24/2018 Ian Delong ctive Last Documented On 9 2:15PM ; [facility] Plan of Treatment Instructions to patient Instructions for patient see PCP for BP and weight managment Last Documented On 9 2:37PM ; [facility] Assessments Includes: Assessments from this encounter No Assessments Recorded Instructions Includes: Instructions from this encounter Instructions to patient Instructions for patient see PCP for BP and weight managment Last Documented On 9 2:37PM ; [facility] Medical Equipment - Implanted Devices Includes: Current Devices No Medical Equipment Recorded Medications Includes: Medications discussed during this encounter and other current Medications Current Medications (continue as prescribed) Ozempic (2 MG/DOSE) 8 MG/3ML Subcutaneous Solution Pen-injector 07/21/2022 Provider: NICOLE DOLL Diagnosis: Last Documented On 3 9:52AM By Simon Hernandez ; [facility] Fluconazole 150 MG Oral Tablet 07/02/2022 Provider: Jose Antonio Edmondson Diagnosis: Last Documented On 3 9:52AM By Simon Hernandez ; [facility] Medications Administered Includes: Administered Medications from this encounter No Administered Medications Recorded Vital Signs Includes: Vital Signs from this encounter Vital Name 03/27/2019 02:37P Height (in) 71 Weight (lb) 285 Body Mass Index (kg/m2) 39.7 Body Surface Area (m2) 2.5 Note: arw Last Documented: On 03/27/2019 2:37PM ; [facility] Results Includes: Results discussed during this encounter No Results Recorded For Specified Dates History of Present Illness Includes: History of Present Illness from this encounter CHANI Fernández is a 43 year old male. - Allergy list reviewed - Problem list reviewed - Medication reconciliation performed - Medication list reviewed with patient Social History Description Last Updated Alcohol use 07/22/2022 Last Documented On 9 2:37PM ; [facility] Caffeine use 07/22/2022 Last Documented On 9 2:37PM ; [facility], [facility] Exercising regularly 07/22/2022 Last Documented On 9 2:37PM ; [facility] Not using drugs 07/22/2022 Last Documented On 9 2:37PM ; [facility] No recent change in diet 12/20/2018 Last Documented On 9 2:37PM ; [facility], [facility] No tobacco use 12/20/2018 Last Documented On 9 2:37PM ; [facility], [facility] Not a current smoker 12/20/2018 Last Documented On 9 2:37PM ; [facility], [facility] Smoking status : Never smoker 12/20/2018 Last Documented On 9 2:37PM ; [facility] Procedures and Surgical History Includes: Procedures from this encounter Procedures Code Diagnosis Performing Provider Service L ocation Service Date Clinical summary provided to patient Last Documented On 9 2:37PM ; [facility] Surgical History Last Updated History of back surgery 07/22/2022 Last Documented On 9 2:37PM ; [facility] Medical History Includes: Medical History addressed during this encounter Description Last Updated 4 way mamenectomy ~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 03/27/2019 Last Documented On 1 10:50AM ; [facility] Past medical and surgical history non-co ntributory 03/27/2019 Last Documented On 9 2:37PM ; [facility] Family History Includes: Family History addressed during this encounter Description Last Updated Family history of cancer 07/22/2022 Last Documented On 9 2:37PM ; [facility] Family history of heart disease 07/23/19 Last Documented On 9 2:37PM ; [facility] stroke/seizure 12/20/2018 Last Documented On 9 2:37PM ; [facility] Family history of diabetes mellitus 11/23 Last Documented On 9 2:37PM ; [facility] Family history of hypertension 9 Last Documented On 9 2:37PM ; [facility] Review of Systems Includes: Review of Systems from this encounter Systemic: Not feeling tired and no recent weight loss. Recent weight gain. No edema. Head: Headache. No sinus pain. Eyes: Vision problems glasses/contacts. No vision problems and no glaucomatous visual field defect. Otolaryngeal: No hearing loss and no tinnitus. No nasal symptoms. Cardiovascular: No chest pain or discomfort and no palpitations. Pulmonary: No daytime asthma symptoms, no cough, and no chronic cough. No wheezing. Gastrointestinal: No heartburn. Heartburn. No abdominal pain. Endocrine: Hot flashes and muscle weakness. Hematologic: No easy bleeding and no tendency for easy bruising. Musculoskeletal: Lower back pain. No soft tissue swelling. Pain localized to one or more joints. Neurological: No dizziness, no convulsions, and no numbness. Psychological: No anxiety, no emotional lability, no depression, and no insomnia. Not crying for no reason. Skin: No dry skin, no rash, and no ulcers. Allergic and Immunologic: Complaint of seasonal allergic reaction. Mental Status Includes: Mental Status from this encounter Description No anxiety Functional Status Includes: Functional Status from this encounter No Functional Status Recorded Physical Exam Includes: Physical Exam from this encounter Allergies Includes: Active Allergies Substance Type Reaction Onset Date Resolved Date Statu s OTHER Allergy 08/24/2018 Active Last Documented On 3 2:13PM ; [facility] Note: omnipen Encounters Encounter Provider Location Date Check-In Time Check-Out Time Diagnosis WC FOLLOW UP/EST Ian Mckinnon MD [facility] 03/27/20 19 2:36PM 3:43PM Insurance Includes: Active Insurance Policies Plan Name Member ID Group # Subscriber Relationship Effect mindy Dates 1 - [employer] Sumit[employer] [id number] Guilherme Stump Self 07/11/2022 - Unknown 2 - [employer] [id number] Guilherme Stump Self 2018 - Unknown Clinical Notes Includes: Clinical Notes from this encounter No Clinical Notes Recorded
--- OUTSIDE RECORDS SUMMARY | 2024-01-01 08:19 | XMS_ITS | Clinical Summary ---
Author Organization [facility] , [facility] Address [address] [place] [address] Phone Care Team Providers Care Lithographic Printing Machinist Name Role Phone Ino VALDEZ, Ian Unavailable [phone] Cinthia Mccallum APRN Unavailable [phone] Reason for Visit and Chief Complaint The Chief Complaint is: Left shoulder pain Problems Includes: Problems addressed during this encounter and other active Problems Current Visit Onset Date Resolved Date Provider Conditio n Status Joint Pain, Localized in the Left Shoulder 07/22/2022 Delores Jennings PA-C Active Last Documented On 3 9:52AM ; [facility], [facility] Past Visits Onset Date Resolved Date Provider Condition Status Right Forearm Pain 08/24/2018 Ian Mckinnon MD A ctive Last Documented On 9 2:15PM ; [facility] Plan of Treatment I think this is a strain and I think it will resolve I did offer work restrictions but he says he feels like he can work normal duties. We will see him back as scheduled. I did send him a PT order - Last Documented On 07/25/2022 8:09AM ; [facility] Instructions to patient Lose weight Last Documented On 3 9:59AM ; [facility] Assessments Includes: Assessments from this encounter Findings left proximal bicep tendon strain - Last Documented On 07/25/2022 8:09AM ; [facility] Instructions Includes: Instructions from this encounter Instructions to patient Lose weight Last Documented On 3 9:59AM ; [facility] Medical Equipment - Implanted Devices Includes: Current Devices No Medical Equipment Recorded Medications Includes: Medications discussed during this encounter and other current Medications Discontinued / Stopped on this date on 08/24/2018 Duexis 800-26.6MG Oral Tablet Provider: Diagnosis: Last Documented On 3 9:52AM By Simon Hernandez ; [facility] Current Medications (continue as prescribed) Ozempic (2 MG/DOSE) 8 MG/3ML Subcutaneous Solution Pen-injector 07/21/2022 Provider: NICOLE DOLL Diagnosis: Last Documented On 3 9:52AM By Simon Hernandez ; [facility] Fluconazole 150 MG Oral Tablet 07/02/2022 Provider: Jose Antonio Edmondson Diagnosis: Last Documented On 3 9:52AM By Simon Hernandez ; [facility] Medications Administered Includes: Administered Medications from this encounter No Administered Medications Recorded Vital Signs Includes: Vital Signs from this encounter Vital Name 07/22/2022 09:59A Height (in) 71 Weight (lb) 297 Body Mass Index 41.4 Body Surface Area 2.5 Note: cb Last Documented: On 07/22/2022 9:59AM ; [facility] Results Includes: Results discussed during this encounter No Results Recorded For Specified Dates History of Present Illness Includes: History of Present Illness from this encounter CHANI Fernández is a 46 year old male. - Symptoms giving away not using makes pain better lifing arm extended makes pain worse. - Allergy list reviewed - Problem list reviewed - Medication list reviewed - Previous history of new onset pain 07/11/2022 Work Injury - Sharp pain Symptoms - Pain is constant (100% of the time) - Pain is occasional (25% of the time) - Pain is dull, aching - Patient pain level from 1-10: 3 - No previous treatment. patient is in today for evaluation of his shoulder. He has had a work-related injury he says he still is able to work. He does take ibuprofen pain is anterior made worse by certain motions Social History Description Last Updated Alcohol use 07/22/2022 Last Documented On 3 8:09AM ; [facility] Caffeine use 07/22/2022 Last Documented On 3 8:09AM ; [facility] No recent change in diet 07/22/2022 Last Documented On 3 8:09AM ; [facility], [facility] Not a current smoker. 07/22/2022 Last Documented On 3 8:09AM ; [facility], [facility] Not exercising regularly 07/22/2022 Last Documented On 3 8:09AM ; [facility], [facility] Not using drugs 07/22/2022 Last Documented On 3 8:09AM ; [facility] Tobacco non-user 07/22/2022 Last Documented On 3 8:09AM ; [facility], [facility] Smoking Status Unknown Procedures and Surgical History Includes: Procedures from this encounter Procedures Code Diagnosis Performing Provider Service L ocation Service Date use of tobacco assessment performed 1000F Last Documented On 3 9:59AM ; [facility] an X-ray was performed 51452 Last Documented On 3 3:02PM ; [facility], [facility] Surgical History Last Updated History of back surgery 07/22/2022 Last Documented On 3 8:09AM ; [facility], [facility] Past Surgical History: gastric bypass Last Documented On 3 8:09AM ; [facility], [facility] Medical History Includes: Medical History addressed during this encounter Description Last Updated History of arthritis 07/22/2022 Last Documented On 3 8:09AM ; [facility], [facility] History of History of Gallbladder 2022 Last Documented On 3 8:09AM ; [facility], [facility] History of Sleep Apnea 07/22/2022 Last Documented On 3 8:09AM ; [facility], [facility] Use of CPAP 07/22/2022 Last Documented On 3 8:09AM ; [facility], [facility] Family History Includes: Family History addressed during this encounter Description Last Updated Diabetes mellitus 07/22/2022 Last Documented On 3 8:09AM ; [facility], [facility] Family history of cancer 07/22/2022 Last Documented On 3 8:09AM ; [facility], [facility] Family history of heart disease 07/23/19 Last Documented On 3 8:09AM ; [facility] Review of Systems Includes: Review of Systems from this encounter Systemic: Not feeling tired, no recent weight loss, and no recent weight gain. Head: No headache and no sinus pain. Eyes: No vision problems, no Cataracts, no Glasses/Contacts, and no Glaucoma. Otolaryngeal: No hearing loss and no tinnitus. Cardiovascular: No chest pain or discomfort, no palpitations, no Hypertension, and no High Cholesterol. Pulmonary: No daytime asthma symptoms and no chronic cough. No wheezing. Gastrointestinal: No heartburn and no abdominal pain. No Indigestion, no Acid Reflux, no Peptic Ulcer, no GI Stomach Bleed, and no Ulcers. Endocrine: No hot flashes. Muscle weakness. No Diabetes, no Hypothyroid, and no Hyperthyroid. Hematologic: No easy bleeding, no tendency for easy bruising, and no Anemia. Musculoskeletal: No Arthritis and no lower back pain. No soft tissue swelling. Pain localized to one or more joints. Neurological: No dizziness, no convulsions, and no numbness. Psychological: No anxiety, no emotional lability, no depression, and no insomnia. Not crying for no reason. Skin: No dry skin. No Ulcers, no Scars, and no rash. Allergic and Immunologic: No complaint of seasonal allergic reaction. Mental Status Includes: Mental Status from this encounter Description No anxiety Functional Status Includes: Functional Status from this encounter No Functional Status Recorded Physical Exam Includes: Physical Exam from this encounter Allergies Includes: Active Allergies Substance Type Reaction Onset Date Resolved Date Statu s OTHER Allergy 08/24/2018 Active Last Documented On 3 2:13PM ; [facility] Note: omnipen Encounters Encounter Provider Location Date Check-In Time Check-Out Time Diagnosis NEW PATIENT Delores Jennings PA-C [facility] 07/23/19 23 9:44AM 10:09AM Insurance Includes: Active Insurance Policies Plan Name Member ID Group # Subscriber Relationship Effect mindy Dates 1 - [employer] [id number] Guilherme Stump Self 07/11/2022 - Unknown 2 - [facility] [id number] Guilherme Stump Self 2018 - Unknown Clinical Notes Includes: Clinical Notes from this encounter * Progress note Date Encounter Last Documented by 07/22/2022 NEW PATIENT Last documented on 07/25/2022; 8:09 AM, Delores Jennings PA-C; [facility], [facility] Active Problems & Conditions - Joint Pain, Localized in the Left Shoulder - Right Forearm Pain Chief Complaint The Chief Complaint is: Left shoulder pain. Referred Here Referred by WC. History of Present Illness Guilherme Fernández is a 46 year old male. - Symptoms giving away not using makes pain better lifing arm extended makes pain worse. - Allergy list reviewed - Problem list reviewed - Medication list reviewed - Previous history of new onset pain 07/11/2022 Work Injury - Sharp pain Symptoms - Pain is constant (100% of the time) - Pain is occasional (25% of the time) - Pain is dull, aching - Patient pain level from 1-10: 3 - No previous treatment. patient is in today for evaluation of his shoulder. He has had a work-related injury he says he still is able to work. He does take ibuprofen pain is anterior made worse by certain motions Current Medication - Fluconazole 150 MG Oral Tablet 28 days, 0 refills - Ozempic (2 MG/DOSE) 8 MG/3ML Subcutaneous Solution Pen-injector 28 days, 0 refills Past Medical/Surgical History Reported: Use of CPAP. Diagnoses: Sleep Apnea. Arthritis Procedural: - History of Gallbladder Surgical: - Past Surgical History: gastric bypass - Back surgery Social History Not a current smoker. Current diet: No recent change in diet. Caffeine use: Caffeine use. Tobacco use: Tobacco non-user. Alcohol: Alcohol use. Drug Use: Not using drugs. Habits: Not exercising regularly. Allergies - OTHER Family History Cancer Heart disease Diabetes mellitus Review Of Systems Systemic: Not feeling tired, no recent weight loss, and no recent weight gain. Head: No headache and no sinus pain. Eyes: No vision problems, no Cataracts, no Glasses/Contacts, and no Glaucoma. Otolaryngeal: No hearing loss and no tinnitus. Cardiovascular: No chest pain or discomfort, no palpitations, no Hypertension, and no High Cholesterol. Pulmonary: No daytime asthma symptoms and no chronic cough. No wheezing. Gastrointestinal: No heartburn and no abdominal pain. No Indigestion, no Acid Reflux, no Peptic Ulcer, no GI Stomach Bleed, and no Ulcers. Endocrine: No hot flashes. Muscle weakness. No Diabetes, no Hypothyroid, and no Hyperthyroid. Hematologic: No easy bleeding, no tendency for easy bruising, and no Anemia. Musculoskeletal: No Arthritis and no lower back pain. No soft tissue swelling. Pain localized to one or more joints. Neurological: No dizziness, no convulsions, and no numbness. Psychological: No anxiety, no emotional lability, no depression, and no insomnia. Not crying for no reason. Skin: No dry skin. No Ulcers, no Scars, and no rash. Allergic and Immunologic: No complaint of seasonal allergic reaction. Physical Findings - Vitals taken 07/22/2022 09:59 am cb Height 71 in Weight 297 lbs Body Mass Index 41.4 kg/m2 Body Surface Area 2.5 m2 Standard Measurements: - Patient was overweight. General Exam: The patient is awake and alert. No acute distress. Normal mood and affect for age. Well groomed and nourished Neuro: Sensation was intact to light touch over the extremity. Vascular: +2 radial pulses. No edema. Derm: No signs of active infection. No acute skin changes. Musculoskeletal: Normal gait and station. No muscle atrophy. No joint effusion. No muscle or bony deformity active forward flexion is completely has good strength and function in the cuff has mild reproducible pain with biceps testing the joint is stable liver shear test is negative Tests x-rays three-view of the shoulder office today show no bony abnormality of the joint is well centered no arthritic change Assessment left proximal bicep tendon strain Previous Tests Imaging: X-Ray: An X-ray was performed. Counseling/Education - Lose weight Plan I think this is a strain and I think it will resolve I did offer work restrictions but he says he feels like he can work normal duties. We will see him back as scheduled. I did send him a PT order Notes This dictation was done with voice recognition software and may contain errors and omissions. Practice Management Use of tobacco assessment performed. Care Team - Cinthia Mccallum
--- OUTSIDE RECORDS SUMMARY | 2024-01-01 08:19 | XMS_ITS | Clinical Summary ---
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 Role Phone Ino VALDEZ, Ian Unavailable [phone] Cinthia Mccallum APRN Unavailable [phone] Reason for Visit and Chief Complaint The Chief Complaint is: R forearm pain Problems Includes: Problems addressed during this encounter and other active Problems All Visits Onset Date Resolved Date Provider Condition S tatus Joint Pain, Localized in the Left Shoulder 07/22/2022 Delores Jennings PA-C Active Last Documented On 3 9:52AM ; [facility] Right Forearm Pain 08/24/2018 Ian Delong ctive Last Documented On 9 2:15PM ; [facility] Plan of Treatment Instructions to patient Instructions for patient see PCP for BP and weight managment Last Documented On 9 2:22PM ; [facility] Assessments Includes: Assessments from this encounter No Assessments Recorded Instructions Includes: Instructions from this encounter Instructions to patient Instructions for patient see PCP for BP and weight managment Last Documented On 9 2:22PM ; [facility] Medical Equipment - Implanted Devices Includes: Current Devices No Medical Equipment Recorded Medications Includes: Medications discussed during this encounter and other current Medications Current Medications (continue as prescribed) Ozempic (2 MG/DOSE) 8 MG/3ML Subcutaneous Solution Pen-injector 07/21/2022 Provider: NICOLE DOLL Diagnosis: Last Documented On 3 9:52AM By Simon Hernandez ; [facility] Fluconazole 150 MG Oral Tablet 07/02/2022 Provider: Jose Antonio Edmondson Diagnosis: Last Documented On 3 9:52AM By Simon Hernandez ; [facility], [facility] Medications Administered Includes: Administered Medications from this encounter No Administered Medications Recorded Vital Signs Includes: Vital Signs from this encounter Vital Name 12/20/2018 02:22P Height (in) 71 Weight (lb) 285 Body Mass Index (kg/m2) 39.7 Body Surface Area (m2) 2.5 Last Documented: On 12/20/2018 2:22PM ; [facility], [facility] Results Includes: Results discussed during this encounter No Results Recorded For Specified Dates History of Present Illness Includes: History of Present Illness from this encounter HPI Guilherme Fernández is a 43 year old male. - Medication list reviewed with patient. Social History Description Last Updated Alcohol use 12/20/2018 Last Documented On 1 2:17PM ; [facility], [facility] Caffeine use 12/20/2018 Last Documented On 1 2:17PM ; [facility], [facility] Exercising regularly 12/20/2018 Last Documented On 1 2:17PM ; [facility], [facility] No recent change in diet 12/20/2018 Last Documented On 1 2:17PM ; [facility], [facility] No tobacco use 12/20/2018 Last Documented On 1 2:17PM ; [facility], [facility] Not a current smoker 12/20/2018 Last Documented On 1 2:17PM ; [facility], [facility] Not using drugs 12/20/2018 Last Documented On 1 2:17PM ; [facility], [facility] Smoking status : Never smoker 12/20/2018 Last Documented On 1 2:17PM ; [facility], [facility] Procedures and Surgical History Includes: Procedures from this encounter Procedures Code Diagnosis Performing Provider Service L ocation Service Date Clinical summary provided to patient Last Documented On 9 2:22PM ; [facility], [facility] Surgical History Last Updated History of back surgery 12/20/2018 Last Documented On 1 2:17PM ; [facility], [facility] Medical History Includes: Medical History addressed during this encounter Description Last Updated 4 way mamenectomy ~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 12/20/2018 Last Documented On 1 2:17PM ; [facility] Past medical and surgical history non-co ntributory 12/20/2018 Last Documented On 1 2:17PM ; [facility] Family History Includes: Family History addressed during this encounter Description Last Updated stroke/seizure 12/20/2018 Last Documented On 1 2:17PM ; [facility] Family history of cancer 12/20/2018 Last Documented On 1 2:17PM ; [facility] Family history of diabetes mellitus 11/23 Last Documented On 1 2:17PM ; [facility] Family history of heart disease 12/21/19 19 Last Documented On 1 2:17PM ; [facility] Family history of hypertension 9 Last Documented On 1 2:17PM ; [facility] Review of Systems Includes: Review [...] Active Last Documented On 3 2:13PM ; [facility], [facility] Note: omnipen Encounters Encounter Provider Location Date Check-In Time Check-Out Time Diagnosis WC FOLLOW UP/EST Ian Mckinnon MD [facility] 12/21/19 19 2:19PM 2:51PM Insurance Includes: Active Insurance Policies Plan Name Member ID Group # Subscriber Relationship Effect mindy Dates 1 - [employer] [id number] Guilherme Stump Self 07/11/2022 - Unknown 2 - [employer] [id number] Guilherme Stump Self 2018 - Unknown Clinical Notes Includes: Clinical Notes from this encounter No Clinical Notes Recorded
--- OUTSIDE RECORDS SUMMARY | 2024-01-01 08:19 | XMS_ITS | Clinical Summary ---
Author Organization [facility] , [facility] Address [address] [place] [address] Phone Care Team Providers Care Vest Busheler Name Role Phone Ino VALDEZ, Ian Unavailable [phone] Cinthia Mccallum APRN Unavailable [phone] Reason for Visit and Chief Complaint The Chief Complaint is: R forearm pain Problems Includes: Problems addressed during this encounter and other active Problems All Visits Onset Date Resolved Date Provider Condition S tatus Joint Pain, Localized in the Left Shoulder 07/22/2022 Delores Jennings PA-C Active Last Documented On 3 9:52AM ; [facility] Right Forearm Pain 08/24/2018 Ian Delong ctive Last Documented On 9 2:15PM ; [facility] Plan of Treatment Patient requested to proceed with PRP injection to the right elbow. After informed consent, 60 cc of whole blood was drawn in a standard fashion and prepared on a centrifuge to yield 7 cc of leukocyte rich PRP with a 5-6 times normal platelet concentration using the GIVINGtra[employer] system and with the ultrasound we marked the extensor origin on the lateral upper condyle and anesthetize the skin area over that with 5 cc of 1% Xylocaine plain we then placed with a 22-gauge needle the platelet rich plasma into the extensor tendon at the epicondyle using a peppering technique we placed all 7 cc throughout the extensor with a small portion in the recess just anterior to the lateral condyle. 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 will follow up in 6 weeks for recheck - Last Documented On 01/21/2019 5:29AM ; [facility] Instructions to patient Instructions for patient see PCP for BP and weight managment Last Documented On 9 1:51PM ; [facility], [facility] Assessments Includes: Assessments from this encounter Findings Right elbow lateral epicondylitis - Last Documented On 01/21/2019 5:29AM ; [facility], [facility] Instructions Includes: Instructions from this encounter Instructions to patient Instructions for patient see PCP for BP and weight managment Last Documented On 9 1:51PM ; [facility] Medical Equipment - Implanted Devices Includes: [...] 9:52AM By Simon Hernandez ; [facility] Medications Administered Includes: Administered Medications from this encounter No Administered Medications Recorded Vital Signs Includes: Vital Signs from this encounter Vital Name 01/17/2019 01:51P Height (in) 71 Weight (lb) 285 Body Mass Index (kg/m2) 39.7 Body Surface Area (m2) 2.5 Last Documented: On 01/17/2019 1:51PM ; [facility] Results Includes: Results discussed during this encounter No Results Recorded For Specified Dates History of Present Illness Includes: History of Present Illness from this encounter CHANI Fernández is a 43 year old male. - Allergy list reviewed - Problem list reviewed - Medication list reviewed with patient - Medication reconciliation performed Follow-up right elbow with continued lateral epicondylar pain after exacerbation at work patient is now presents for PRP injection to the right elbow having failed other treatments Social History Description Last Updated Alcohol use 01/17/2019 Last Documented On 9 5:29AM ; [facility], [facility] Caffeine use 01/17/2019 Last Documented On 9 5:29AM ; [facility] Exercising regularly 01/17/2019 Last Documented On 9 5:29AM ; [facility] No recent change in diet 01/17/2019 Last Documented On 9 5:29AM ; [facility] No tobacco use 01/17/2019 Last Documented On 9 5:29AM ; [facility] Not a current smoker 01/17/2019 Last Documented On 9 5:29AM ; [facility] Not using drugs 01/17/2019 Last Documented On 9 5:29AM ; [facility] Smoking status : Never smoker 01/17/2019 Last Documented On 9 5:29AM ; [facility], [facility] Procedures and Surgical History Surgical History Last Updated History of back surgery 01/17/2019 Last Documented On 9 5:29AM ; [facility] Medical History Includes: Medical History addressed during this encounter Description Last Updated 4 way mamenectomy ~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 01/17/2019 Last Documented On 9 5:29AM ; [facility] Past medical and surgical history non-co ntributory 01/17/2019 Last Documented On 9 5:29AM ; [facility] Family History Includes: Family History addressed during this encounter Description Last Updated stroke/seizure 01/17/2019 Last Documented On 9 5:29AM ; [facility] Family history of cancer 01/17/2019 Last Documented On 9 5:29AM ; [facility] Family history of diabetes mellitus 12/24 Last Documented On 9 5:29AM ; [facility] Family history of heart disease 01/18/20 19 Last Documented On 9 5:29AM ; [facility] Family history of hypertension 9 Last Documented On 9 5:29AM ; [facility] Review of Systems Includes: Review of Systems from this encounter Systemic: Not feeling tired (fatigue) and no recent weight loss. Recent weight [...] Active Last Documented On 3 2:13PM ; [facility], [facility] Note: omnipen Encounters Encounter Provider Location Date Check-In Time Check-Out Time Diagnosis IN OFFICE PROCEDURE Ian Mckinnon MD [facility] B 01/18/20 19 1:50PM 2:49PM Insurance Includes: Active Insurance Policies Plan Name Member ID Group # Subscriber Relationship Effect mindy Dates 1 - [employer] [id number] Guilherme Stump Self 07/11/2022 - Unknown 2 - [facility] [id number] Guilherme Stump Self 2018 - Unknown Clinical Notes Includes: Clinical Notes from this encounter No Clinical Notes Recorded
--- OUTSIDE RECORDS SUMMARY | 2024-01-01 08:19 | XMS_ITS | Clinical Summary ---
Author Organization [facility] , [facility] Address [address] [place] [address] Phone Care Team Providers Care Manager Mall Name Role Phone Ino VALDEZ, Ian Unavailable [phone] Cinthia Mccallum APRN Unavailable [phone] Reason for Visit and Chief Complaint The Chief Complaint is: Left shoulder pain Problems Includes: Problems addressed during this encounter and other active Problems All Visits Onset Date Resolved Date Provider Condition S tatus Joint Pain, Localized in the Left Shoulder 07/22/2022 Delores Jennings PA-C Active Last Documented On 3 9:52AM ; [facility] Right Forearm Pain 08/24/2018 Ian Delong ctive Last Documented On 9 2:15PM ; [facility] Plan of Treatment Patient is at [facility]. We will return the patient to full release and normal activities. They can follow-up as needed. No further questions. - Last Documented On 09/30/2022 2:42PM ; [facility] Instructions to patient Lose weight Last Documented On 3 2:13PM ; [facility], [facility] Assessments Includes: Assessments from this encounter Findings resolved left shoulder pain - Last Documented On 09/30/2022 2:42PM ; [facility], [facility] Instructions Includes: Instructions from this encounter Instructions to patient Lose weight Last Documented On 3 2:13PM ; [facility], [facility] Medical Equipment - Implanted Devices Includes: [...] Vital Signs from this encounter Vital Name 09/30/2022 02:13P Height (in) 71 Weight (lb) 297 Body Mass Index 41.4 Body Surface Area 2.5 Note: hdv Last Documented: On 09/30/2022 2:13PM ; [facility] Results Includes: Results discussed during this encounter No Results Recorded For Specified Dates History of Present Illness Includes: History of Present Illness from this encounter CHANI Fernández is a 47 year old male. - Symptoms giving away [...] previous treatment. patient is in today for follow-up on left shoulder pain he says this is resolved he feels like he is 100% again Social History Description Last Updated Tobacco non-user 09/30/2022 Last Documented On 3 2:42PM ; [facility] No recent change in diet 09/30/2022 Last Documented On 3 2:42PM ; [facility] Not a current smoker. 09/30/2022 Last Documented On 3 2:42PM ; [facility] Alcohol use 07/22/2022 Last Documented On 3 2:13PM ; [facility] Caffeine use 07/22/2022 Last Documented On 3 2:13PM ; [facility] Not exercising regularly 07/22/2022 Last Documented On 3 2:13PM ; [facility] Not using drugs 07/22/2022 Last Documented On 3 2:13PM ; [facility] Smoking Status Unknown Procedures and Surgical History Includes: Procedures from this encounter Procedures Code Diagnosis Performing Provider Service L ocation Service Date use of tobacco assessment performed 1000F Last Documented On 3 2:13PM ; [facility], [facility] an X-ray was performed 91822 Last Documented On 3 2:13PM ; [facility] Surgical History Last Updated History of back surgery 07/22/2022 Last Documented On 3 2:13PM ; [facility] Past Surgical History: gastric bypass Last Documented On 3 2:13PM ; [facility], [facility] Medical History Includes: Medical History addressed during this encounter Description Last Updated History of arthritis 07/22/2022 Last Document[facility] On 3 2:13PM ; [facility] History of History of Gallbladder 2022 Last Documented On 3 2:13PM ; [facility], [facility] History of Sleep Apnea 07/22/2022 Last Documented On 3 2:13PM ; [facility], [facility] Use of CPAP 07/22/2022 Last Documented On 3 2:13PM ; [facility] 4 way mamenectomy ~l2-l5 ~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 ~hypoglycemia 03/27/2019 Last Documented On 3 2:13PM ; [facility], [facility] Family History Includes: Family History addressed during this encounter Description Last Updated Diabetes mellitus 07/22/2022 Last Documented On 3 2:42PM ; [facility], [facility] Family history of cancer 07/22/2022 Last Documented On 3 2:13PM ; [facility], [facility] Family history of heart disease 07/23/19 Last Documented On 3 2:13PM ; [facility], [facility] stroke/seizure 12/20/2018 Last Documented On 3 2:13PM ; [facility], [facility] Family history of hypertension 9 Last Documented On 3 2:13PM ; [facility] Review of Systems Includes: Review of Systems [...] Exam Includes: Physical Exam from this encounter Immunizations Includes: Immunizations addressed during this encounter Vaccine Dose # Date Site Reaction(s) Status Source Influenza 1 09/30/2022 Complete (Refused - Patient objection) [facility] Last Documented On 3 2:13PM ; [facility] PCV (Pneumovax 23) 1 09/30/2022 Complete (Refused - Patient objection) [facility] Last Documented On 3 2:13PM ; [facility] Td 1 09/30/2022 Complete (Refused - Patient objection) [facility] Last Documented On 3 2:13PM ; [facility] Allergies Includes: Active Allergies Substance Type Reaction Onset Date Resolved Date Statu s OTHER Allergy 08/24/2018 Active Last Documented On 3 2:13PM ; [facility] Note: omnipen Encounters Encounter Provider Location Date Check-In Time Check-Out Time Diagnosis FOLLOW UP/EST Delores Jennings PA-C [facility] 10/01/19 23 1:35PM 2:08PM Insurance Includes: Active Insurance Policies Plan Name Member ID Group # Subscriber Relationship Effect mindy Dates 1 - [employer] [id number] Guilherme Fernández Self 07/11/2022 - Unknown 2 - [employer] [id number] Guilherme Fernández Self 2018 - Unknown Clinical Notes Includes: Clinical Notes from this encounter * Progress note Date Encounter Last Documented by 09/30/2022 FOLLOW UP/EST Last documented on 09/30/2022; 2:42 PM, Delores Jennings PA-C; [facility], [facility] Active Problems & Conditions - Joint Pain, Localized in the Left Shoulder - Right Forearm Pain Chief Complaint The Chief Complaint is: Left shoulder pain. Referred Here Referred by . History of Present Illness Guilherme Fernández is a 47 year old male. - Symptoms giving away [...] previous treatment. patient is in today for follow-up on left shoulder pain he says this is resolved he feels like he is 100% again Current Medication - Fluconazole 150 MG Oral Tablet 28 days, 0 refills - Ozempic (2 MG/DOSE) 8 MG/3ML Subcutaneous Solution Pen-injector 28 days, 0 refills Past Medical/Surgical History Reported: Use of CPAP. Diagnoses: Sleep Apnea. 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 Procedural: - History of Gallbladder Surgical: - Past Surgical History: gastric bypass - Back surgery Social History Not a current smoker. Current diet: No recent change in diet. Caffeine use: Caffeine use. Tobacco use: Tobacco non-user. Alcohol: Alcohol use. Drug Use: Not using drugs. Habits: Not exercising regularly. Allergies - OTHER Family History Cancer Heart disease Diabetes mellitus Stroke/seizure Systemic hypertension Review Of Systems Systemic: Not feeling tired, [...] allergic reaction. Physical Findings - Vitals taken 09/30/2022 02:13 pm hdv Height 71 in Weight 297 lbs Body [...] joint effusion. No muscle or bony deformity full active forward flexion. There is no weakness in the cuff. The joint is stable in the bicep pain Assessment resolved left shoulder pain Previous Tests Imaging: X-Ray: An X-ray was performed. Vaccinations - Td Dose #1 Status: Refused Patient Objection Date: 09/30/2022 - Influenza Dose #1 Status: Refused Patient Objection Date: 09/30/2022 - PCV (Pneumovax 23) Dose #1 Status: Refused Patient Objection Date: 09/30/2022 Counseling/Education - Lose weight Plan Patient is at [facility]. We will return the patient to full release and normal activities. They can follow-up as needed. No further questions. Notes This dictation was done with voice recognition software and may contain errors and omissions. Practice Management Use of tobacco assessment performed. Care Team - Cinthia Mccallum
[2024-01-01 08:46] LABS: Basophils % 0.6 % (0.1-2.0); Eosinophils # 0.1 K/mm3 (0.0-0.4); Eosinophils % 2.2 % (0.1-12.0); Hematocrit 40.8 % (42.0-52.0); Hemoglobin 13.2 g/dL (14.1-18.0); Lymphocytes # 1.6 K/mm3 (0.7-4.5); Lymphocytes % 30.2 % (10-50); Mean Corpuscular HGB Conc 32.4 g/dL (31.8-35.4); Mean Corpuscular Hemoglobin 31.7 pg (27.0-31.2); Mean Corpuscular Volume 97.9 fl (80-94); Mean Platelet Volume 8.3 fl (7.4-10.4); Monocytes # 0.3 K/mm3 (0.1-1.0); Monocytes % 5.3 % (1.7-9.3); Neutrophils # 3.2 K/mm3 (1.8-7.8); Neutrophils % 61.6 % (37.0-80.0); Platelet Count 210 K/mm3 (142-424); Red Blood Count 4.17 M/mm3 (4.60-6.20); White Blood Count 5.3 K/mm3 (4.8-10.8)
[2024-01-01 08:50] LABS: Chloride 106 mmol/L (98-107); Sodium 138 mmol/L (136-145)
[2024-01-01 08:51] LABS: Potassium 4.3 mmoL/L (3.5-5.1)
[2024-01-01 08:54] LABS: Anion Gap 8.3 mEq/L (5-15); Blood Urea Nitrogen 14 mg/dl (9-20); Calcium 8.5 mg/dl (8.4-10.2); Carbon Dioxide 28 mmol/L (22.0-30.0); Creatinine Clearance Estimated 270 mL/min (50-200); Estimated Glomerular Filt Rate 145 ml/min (>60); GFR (African American) 176 ML/MIN (>60); Glucose 88 mg/dl (74-100)
[2024-01-01] MEDS: LIDOCAINE 1% 10ML MDV 20 ML IJ (10:30)
[2024-01-01] MEDS: HEPARIN 1,000 UNITS/500ML NS (CATH LAB) 3000 UNIT IV (10:31)
[2024-01-01] MEDS: 0.9 % SODIUM CHLORIDE 500 ML 25 ML IV (10:31)
[2024-01-01] MEDS: VERAPAMIL 2.5MG/ML 2ML VIAL 2.5 MG IV (10:31)
[2024-01-01] MEDS: diphenhydrAMINE 50MG/ML VIAL 50 MG IV (10:31)
[2024-01-01] MEDS: NITROGLYCERIN 800MCG/8ML SYR (CATH LAB) 800 MCG IA (10:33)
[2024-01-01] MEDS: HEPARIN 1,000 UNITS/ML 10ML VIAL (CATH LAB) 10000 UNIT IV (10:34)
[2024-01-01] MEDS: MIDAZOLAM HCL 1MG/1ML 5ML VIAL 1 MG IV (11:13)
[2024-01-01] MEDS: FENTANYL 100MCG/2ML VIAL 50 MCG IV (11:13)
[2024-01-01] MEDS: IOPAMIDOL-370 (76%);100ML BOTTLE 60 ML IV (12:20)
== END 2024-01-01 13:50 | disposition home or self-care (01) ==
PROVIDERS: PCP Nurse Practitioner; Visit Provider Internal Medicine
DX: I20.89 Other forms of angina pectoris (principal); I49.3 Ventricular premature depolarization; Z82.49 Family history of ischemic heart disease and other diseases of the circulatory system; R06.09 Other forms of dyspnea; R94.39 Abnormal result of other cardiovascular function study; G47.33 Obstructive sleep apnea (adult) (pediatric)
CPT/HCPCS: 80048; 85025; 93454; 99152; C1725; C1769; J1200; J1644; J2250; J3010; Q9967

== ENCOUNTER 2024-06-27 14:23 | Outpatient (CLI) | payer BC, SELFPAY ==
[2024-06-27 21:07] LABS: Coronavirus 19, PCR Not Detected (NotDetected); Human Rhinovirus Not Detected (NotDetected); Influenza A, PCR Not Detected (NotDetected); Influenza B, PCR Not Detected (NotDetected); Respiratory Syncytial Virus Not Detected (NotDetected)
== END 2024-06-27 23:59 | disposition home or self-care (01) ==
LOC: LAB.DROPOF 07-01 14:24
PROVIDERS: PCP Nurse Practitioner; Visit Provider Nurse Practitioner
DX: B34.9 Viral infection, unspecified (principal)
CPT/HCPCS: 87631

== ENCOUNTER 2024-07-01 16:05 | Outpatient (CLI) | payer BC, SELFPAY ==
[2024-07-01 16:10] LABS: Adenovirus F 40/41, stool Not Detected (NotDetected); Astrovirus Not Detected (NotDetected); Campylobacter Not Detected (NotDetected); Clostridium Difficile A/B, PCR Not Detected (NotDetected); Cryptosporidium Not Detected (NotDetected); Cyclospora Cayetanesis Not Detected (NotDetected); Entamoeba histolytica Not Detected (NotDetected); Enteroaggregative E coli Not Detected (NotDetected); Enterotoxigenic E coli Not Detected (NotDetected); Giardia lamblia Not Detected (NotDetected); Norovirus Not Detected (NotDetected); Plesimonas Shigalloides, PCR Not Detected (NotDetected); Rotavirus A Not Detected (NotDetected); Salmonella, PCR Not Detected (NotDetected); Sapovirus Not Detected (NotDetected); Shiga-like toxin E coli Not Detected (NotDetected); Shigella Enterovasive E coli Not Detected (NotDetected); Vibrio Cholerae Not Detected (NotDetected); Vibrio, PCR Not Detected (NotDetected); Yersinia Entercolitica, PCR Not Detected (NotDetected)
[2024-07-02 08:08] LABS: Enteropathogenic E coli Detected (NotDetected)
== END 2024-07-01 23:59 | disposition home or self-care (01) ==
LOC: LAB 16:06
PROVIDERS: PCP Nurse Practitioner; Visit Provider Nurse Practitioner
DX: R19.7 Diarrhea, unspecified (principal)
CPT/HCPCS: 87507